=== PATIENT | female | born 1955 | race Hispanic/Latino ===

== ENCOUNTER 2017-05-07 07:47 | Outpatient (CLI) | payer BC ==
--- NOTE | 2017-05-07 13:01 | Mammography Report ---
BILATERAL DIGITAL SCREENING MAMMOGRAM with CAD: 05/07/17 07:47:00 CLINICAL: Routine screening. COMPARISON:01/30/16 FINDINGS: The breasts are almost entirely fatty. No mass, architectural distortion or suspicious calcifications. IMPRESSION: No mammographic evidence of malignancy. BI-RADS CATEGORY: 1 - - Negative RECOMMENDATION: Routine mammographic screening in one year. COMMENT: Patient follow-up letters are generated by our [employer] application.
== END 2017-05-07 07:48 | disposition home or self-care (01) ==
LOC: MAMMO 07:47
PROVIDERS: ATTEND Nurse Practitioner Family
DX: Z12.31 Encounter for screening mammogram for malignant neoplasm of breast (principal)
CPT/HCPCS: 77067; G0202

== ENCOUNTER 2018-12-16 12:30 | Outpatient (CLI) | payer BC ==
--- NOTE | 2018-12-16 15:47 | Mammography Report ---
BILATERAL DIGITAL SCREENING MAMMOGRAM WITH CAD INDICATION: Routine screening mammography. TECHNIQUE: Digital bilateral 2D mammography was obtained in the craniocaudal and mediolateral obliq ue projections. This examination was interpreted with the benefit of Computer-Aided Detection analysi s. COMPARISON: 05/07/2017 FINDINGS: Breast Density: The breasts are almost entirely fatty. There is no evidence of dominant mass, suspicious calcifications or architectural distortion in eith er breast. IMPRESSION:No mammographic evidence of malignancy. BI-RADS Category 1: Negative. No mammographic evidence of malignancy. Recommend routine screening m ammography in one year. A "normal" or negative report should not discourage follow up or biopsy of a clinically significant f inding. A written summary of these findings will be mailed to the patient. The patient will be entered into a mammography reporting system which will generate a reminder letter for the patient's next appointmen t at the appropriate interval. The [employer] recommends yearly mammograms starting at age 40 and continuing as l samantha as a woman is in good health. Breast MRI is recommended for women with an approximate 20-25% or greater lifetime risk of breast cancer, including women with a strong family history of breast or ova lilly cancer or who have been treated for Hodgkin's disease. Signer Name: Mike Zhao MD Signed: 12/16/2018 3:42 PM Workstation Name: [id number]
== END 2018-12-16 12:31 | disposition home or self-care (01) ==
LOC: MAMMO 12:30
PROVIDERS: ATTEND Internal Medicine
DX: Z12.31 Encounter for screening mammogram for malignant neoplasm of breast (principal); E78.00 Pure hypercholesterolemia, unspecified; I10 Essential (primary) hypertension; K21.9 Gastro-esophageal reflux disease without esophagitis
CPT/HCPCS: 77067

== ENCOUNTER 2021-03-20 08:10 | Outpatient (CLI) | payer MEDICARE ==
--- NOTE | 2021-03-20 14:33 | Mammography Report ---
DIGITAL SCREENING MAMMOGRAM WITH CAD, 03/20/2021 CLINICAL INFORMATION / INDICATION: Routine screening mammography. TECHNIQUE: Digital bilateral 2D mammography was obtained in the craniocaudal and mediolateral obliqu e projections. This examination was interpreted with the benefit of Computer-Aided Detection analysis . COMPARISON: 02/16/2020 FINDINGS: Breast Density: The breasts are almost entirely fatty. No dominant mass, suspicious calcifications, or architectural distortion in the left breast. There is a 6 mm oval well-circumscribed nodule in the lower outer quadrant of the right breast, anterior dept h. This has shown slight interval increase in size over the past few years and therefore warrants fur ther evaluation with additional imaging. This may represent an enlarging intramammary lymph node base d on appearance. Right breast ultrasound is recommended followed by spot compression views if no sono graphic correlate can be identified. No interval change. IMPRESSION: Interval enlargement of small benign-appearing nodule in the right breast, lower outer qu adrant. Recommend right breast ultrasound with possible spot compression images. Follow up recommendation: Ultrasound BI-RADS Category 0: Incomplete. Needs additional imaging evaluation and/or prior mammograms for lei petersen. A "normal" or negative report should not discourage follow up or biopsy of a clinically significant f inding. A written summary of these findings will be mailed to the patient. The patient will be entered into a mammography reporting system which will generate a reminder letter for the patient's next appointmen t at the appropriate interval. The [employer] recommends yearly mammograms starting at age 40 and continuing as l samantha as a woman is in good health. Breast MRI is recommended for women with an approximate 20-25% or greater lifetime risk of breast cancer, including women with a strong family history of breast or ova lilly cancer or who have been treated for Hodgkin's disease. Signer Name: Claritza Prado MD Signed: 03/20/2021 2:28 PM Workstation Name: [email or web address]
== END 2021-03-20 08:11 | disposition home or self-care (01) ==
LOC: MAMMO 08:10
PROVIDERS: ATTEND Internal Medicine
DX: Z12.31 Encounter for screening mammogram for malignant neoplasm of breast (principal); N63.13 Unspecified lump in the right breast, lower outer quadrant
CPT/HCPCS: 77067

== ENCOUNTER 2021-04-10 08:10 | Outpatient (CLI) | payer MEDICARE ==
--- NOTE | 2021-04-10 09:56 | Mammography Report ---
RIGHT DIGITAL DIAGNOSTIC MAMMOGRAM WITH CAD CONVENTIONAL, 04/10/2021 RIGHT LIMITED BREAST ULTRASOUND CLINICAL INFORMATION / INDICATION: Patient presents as a callback from screening mammogram for furthe r evaluation of a nodular density in the right breast. R92.8 TECHNIQUE: Digital right mammographic imaging was performed. Spot compression views were obtained. Li mited ultrasound was performed. This examination was interpreted with the benefit of Computer-Aided D etection (CAD) analysis. COMPARISON: Prior mammogram 03/20/2021 FINDINGS: Breast Density: The breasts are almost entirely fatty. MAMMOGRAPHIC FINDINGS: Spot compression views demonstrate a persistent 5 mm oval circumscribed mass i n the lower outer quadrant of the right breast, middle depth. The morphology is not definitive for an intramammary lymph node. Targeted ultrasound was performed for further evaluation. ULTRASOUND FINDINGS: Targeted ultrasound evaluation was performed of the area of interest. Correspo nding with the nodular density seen mammographically, there is an oval circumscribed hypoechoic mass in the right breast 7:30 position located 5 cm from the nipple measuring up to 4 x 3 x 3 mm. No inter nal vascularity is demonstrated. IMPRESSION: 1. An oval circumscribed hypoechoic mass corresponds with the recent mammographic finding. This is co nsidered low suspicion for malignancy and may reflect an intramammary lymph node. However, because th is is increasing in size on serial mammograms, ultrasound-guided biopsy is recommended for confirmati on. Follow up recommendation: Biopsy BI-RADS Category 4: Suspicious for Malignancy. A "normal" or negative report should not discourage follow up or biopsy of a clinically significant f inding. A written summary of these findings will be mailed to the patient. The patient will be entered into a mammography reporting system which will generate a reminder letter for the patient's next appointmen t at the appropriate interval. According to the [employer], yearly mammograms are recommended starting at age 40 and continuing as long as a woman is in good health. Breast MRI is recommended for women with an melody roximately 20-25% or greater lifetime risk of breast cancer, including women with a strong family his tory of breast or ovarian cancer and women who have been treated for Hodgkin's disease. Signer Name: Maria Fernanda Hawley MD Signed: 04/10/2021 9:51 AM Workstation Name: [id number]
== END 2021-04-10 08:11 | disposition home or self-care (01) ==
LOC: US 08:10
PROVIDERS: ATTEND Internal Medicine
DX: N63.13 Unspecified lump in the right breast, lower outer quadrant (principal)

== ENCOUNTER 2021-04-24 08:06 | Outpatient (CLI) | payer MEDICARE ==
--- NOTE | 2021-04-24 12:11 | Ultrasound Report ---
ULTRASOUND GUIDED RIGHT BREAST BIOPSY, 04/24/2021 CLINICAL INFORMATION / INDICATION: ABNORMAL MAMMOGRAM OF RIGHT BREAST. COMPARISON: Ultrasound and mammogram both from 04/10/2021 PROCEDURE: Risks, benefits, and indications to the procedure were discussed with the patient in detail, includin g bleeding, infection, hematoma formation, and inadequate tissue sampling. The patient agreed to proc eed with both verbal and written consent. A timeout procedure was performed with two patient identifi ers. The breast was prepped and draped in the usual sterile fashion. Lidocaine 1% was used for local anest hesia. Under direct ultrasound guidance, 1 14 gauge core sample was obtained of the right breast cyst before the cyst completely collapsed. A biopsy marker was not placed because we could no longer cydney ntify the location. Biopsy device was removed and hemostasis achieved with manual pressure. A sterile dressing was applied to the skin. The patient tolerated the procedure without difficulty. No complications were encountered. Postbiopsy instructions were discussed with the patient and given in writing. Specimens were sent to pathology. IMPRESSION: 1. Technically successful ultrasound guided right breast biopsy. Biopsy results are pending and will be reported in an addendum. Signer Name: Prosper Melgar MD Signed: 04/24/2021 12:06 PM Workstation Name: [id number]
== END 2021-04-24 08:07 | disposition home or self-care (01) ==
LOC: US 08:06
PROVIDERS: ATTEND Internal Medicine
DX: R92.8 Other abnormal and inconclusive findings on diagnostic imaging of breast (principal); I10 Essential (primary) hypertension; E78.00 Pure hypercholesterolemia, unspecified; G47.30 Sleep apnea, unspecified; K21.9 Gastro-esophageal reflux disease without esophagitis; G43.909 Migraine, unspecified, not intractable, without status migrainosus; Z87.891 Personal history of nicotine dependence; Z79.899 Other long term (current) drug therapy; Z98.890 Other specified postprocedural states
CPT/HCPCS: 88305